=== PATIENT | male | born 1975 | race American Indian/Alaskan Native ===

== ENCOUNTER 2021-12-22 16:30 | Emergency (ER) | payer SELFPAY ==
[2021-12-22 16:36] VITALS: BP 123/75
--- NOTE | 2021-12-22 18:31 | Emergency Department Report ---
ED General Adult HPI - General Chief complaint: Neuro Symptoms/Deficit Stated complaint: BOTH HANDS NUMBNESS Source: patient Mode of arrival: Ambulatory Limitations: No Limitations - History of Present Illness Initial comments: 46-year-old male presents to the ED complaining of bilateral hand feeling heavy x1 week. 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 Patient has no obvious deformity no distracting injury noted to his bilateral hands. Have full range of motion is in bilateral hands. capillary refill inact. Patient alert and oriented x3. No acute distress noted. no ill appearance noted - Related Data Previous Rx's Medication Instructions Recorded Last Taken Type Naproxen [Naprosyn] 500 mg PO BID 15 Days #30 tablet 12/22/21 Unknown Rx methOCARBAMOL [Robaxin TAB] 750 mg PO Q8H PRN 15 Days #30 tab 12/22/21 Unknown Rx Allergies Allergy/AdvReac Type Severity Reaction Status Date / Time No Known Allergies Allergy Verified 12/22/21 16:34 ED Review of Systems ROS: Stated complaint: BOTH HANDS NUMBNESS Other details as noted in HPI Constitutional: denies: chills, fever Eyes: denies: eye pain, eye discharge, vision change ENT: denies: ear pain, throat pain Respiratory: denies: cough, shortness of breath, wheezing Cardiovascular: denies: chest pain, palpitations Endocrine: no symptoms reported Gastrointestinal: denies: abdominal pain, nausea, diarrhea Genitourinary: denies: urgency, dysuria Musculoskeletal: denies: back pain, joint swelling, arthralgia Skin: denies: rash, lesions Neurological: denies: headache, weakness, numbness, paresthesias Psychiatric: denies: anxiety, depression Hematological/Lymphatic: denies: easy bleeding, easy bruising ED Past Medical Hx - Medications Home Medications: Home Medications Medication Instructions Recorded Confirmed Last Taken Type Naproxen [Naprosyn] 500 mg PO BID 15 Days #30 tablet 12/22/21 Unknown Rx methOCARBAMOL [Robaxin TAB] 750 mg PO Q8H PRN 15 Days #30 tab 12/22/21 Unknown Rx ED Physical Exam - General Limitations: No Limitations General appearance: alert, in no apparent distress - Head Head exam: Present: atraumatic, normocephalic - Eye Eye exam: Present: normal appearance - ENT ENT exam: Present: mucous membranes moist - Neck Neck exam: Present: normal inspection - Respiratory Respiratory exam: Present: normal lung sounds bilaterally. Absent: respiratory distress - Cardiovascular Cardiovascular Exam: Present: regular rate, normal rhythm. Absent: systolic murmur, diastolic murmur, rubs, gallop - GI/Abdominal GI/Abdominal exam: Present: soft, normal bowel sounds - Rectal Rectal exam: Present: deferred - Extremities Exam Extremities exam: Present: normal inspection, full ROM, normal capillary refill - Back Exam Back exam: Present: normal inspection - Neurological Exam Neurological exam: Present: alert, oriented X3 - Psychiatric Psychiatric exam: Present: normal affect, normal mood - Skin Skin exam: Present: warm, dry, intact, normal color. Absent: rash ED Course Vital Signs 12/22/21 12/22/21 16:35 19:50 Temperature 97.3 F L Pulse Rate 76 71 Respiratory 18 18 Rate Blood Pressure 123/75 O2 Sat by Pulse 98 100 Oximetry ED Medical Decision Making - Medical Decision Making 46-year-old male presents to the ED complaining of bilateral hand feeling heavy x1 week. 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 Patient has no obvious deformity no distracting injury noted to his bilateral hands. Have full range of motion is in bilateral hands. capillary refill inact. Patient alert and oriented x3. No acute distress noted. No ill appearance noted. Patient able to attendant child activity, feel sensation between sharp and dull. Rechecked the patient is resting quietly quietly and comfortable and feeling better. I discussed the results of diagnostic study, my clinical impression and the plan for further treatment with the patient. Patient agrees with plan and discharge at this present time. All question addressed. I have given the patient instruction regarding a diagnosis ,expectation ,follow- up and return precaution. I explained to the patient that emergent condition may arise and to return to the ED for new worsen and any new persisting condition. I have explained the importance of following up with the primary care physician or referral physician listed below has instructed. The patient verbalized understanding of discharge instruction. Critical care attestation.: If time is entered above; I have spent that time in minutes in the direct care of this critically ill patient, excluding procedure time. ED Disposition Clinical Impression: Joint pain in both hands Disposition: HOME / SELF CARE / HOMELESS Is pt being admited?: No Does the pt Need Aspirin: No Condition: Stable Instructions: How to Use Cold Therapy, [id number], Musculoskeletal Pain, Joint Pain, [id number] Additional Instructions: Follow-up with a sports medicine doctor Return ED for any worsening symptoms Take Medication has prescribed Prescriptions: Naproxen [Naprosyn] 500 mg PO BID 15 Days #30 tablet methOCARBAMOL [Robaxin TAB] 750 mg PO Q8H PRN 15 Days #30 tab PRN Reason: Muscle Spasm Referrals: OTTONIEL MOTA MD [Staff Physician] - 3-5 Days Forms: Work/School Release Form(ED)
== END 2021-12-22 19:30 | disposition home or self-care (01) ==
LOC: ED 16:30
DX: M25.542 Pain in joints of left hand (principal); M25.541 Pain in joints of right hand
CPT/HCPCS: 99282